=== PATIENT | female | born 1960 | race Caucasian/White ===

== ENCOUNTER 2020-12-04 13:01 | Emergency (ER) | payer MEDICARE, MEDICAID, SELFPAY ==
[2020-12-04 13:26] VITALS: BP 148/82; PULSE 96; RESP 18; TEMP 37.2; O2SAT 100
--- NOTE | 2020-12-04 14:20 | ED.SKABFB ---
HPI - Skin/Abscess/Foreign Bdy General Chief complaint: Skin/Abscess/Foreign Body Stated complaint: sunburn ear pain and trouble breathing Time Seen by Provider: 12/04/20 14:20 Source: patient Mode of arrival: ambulatory Limitations: no limitations History of Present Illness HPI narrative: Marilin Null is a 60-year-old female with COPD and hypertension, comes here with a 7-day-old sunburn with peeling and blistering and decreased volume of respiration. She has COPD and while she talks well and does not seem short of breath when she inhales deeply there is she has a lot of wheezing that is audible-has left ear pain Related Data Home Medications Medication Instructions Recorded Confirmed albuterol sulfate [Ventolin HFA] 2 puff INHALATION QID PRN 03/30/19 12/04/20 amlodipine 10 mg PO DAILY 03/30/19 12/04/20 atorvastatin 20 mg PO DAILY 03/30/19 12/04/20 budesonide-formoterol [Symbicort] 2 puff INHALATION Q12H 03/30/19 12/04/20 clonidine HCl 0.2 mg PO DAILY 03/30/19 12/04/20 hydrochlorothiazide 25 mg PO DAILY 03/30/19 12/04/20 losartan 100 mg PO DAILY 03/30/19 12/04/20 meloxicam 15 mg PO DAILY 03/30/19 12/04/20 montelukast 10 mg PO DAILY 03/30/19 12/04/20 tiotropium bromide [Spiriva 2 puff INHALATION DAILY 03/30/19 12/04/20 Respimat] Allergies Allergy/AdvReac Type Severity Reaction Status Date / Time erythromycin base Allergy Rash Verified 12/04/20 13:37 lisinopril Allergy Cough Verified 12/04/20 13:37 Beta-Blockers AdvReac Difficulty Verified 12/04/20 13:37 (Beta-Adrenergic Bloc Breathing Review of Systems Review of Systems: CONSTITUTIONAL: Denies fever, chills, sweats. EYES: Denies visual changes, redness, discharge. ENT: Denies rhinorrhea, congestion, sore throat, left otalgia. CARDIOVASCULAR: Denies chest pain, palpitations, edema. RESPIRATORY: Denies dyspnea, has wheezing, cough GASTROINTESTINAL: Denies abdominal pain, nausea, vomiting, diarrhea. GENITOURINARY: Denies dysuria, hematuria, abnormal discharge SKIN: Has sunburn on chest arms legs that is red and it area is blistered NEUROLOGIC: Denies numbness, or focal weakness. PSYCHIATRIC: Denies anxiety or depression. [facility] Past Medical History Medical History (Updated 12/04/20 @ 14:36 by Monique Carvalho CNP) COPD (chronic obstructive pulmonary disease) Hypertension Morbid obesity Family History Family History Other Hypertension Social History Social History (Updated 12/04/20 @ 14:31 by Monique Carvalho CNP) Smoking status: Former smoker Smoking end date: 04/19/10 Alcohol intake: current Comments At time of signature, I agree with nursing past medical, surgical, social and family history. There is no relevant family history pertinent to the presenting complaint. Exam Narrative: GENERAL: This is a well-nourished, well-developed patient, in mild distress. Has mild to severe HEAD: normocephalic, atraumatic. EYES: . Sclera clear/white. Vision is grossly intact. EARS: External ears normal, auditory canals clear on right but is erythematous on the left without drainage, TMs normal without perforation. Hearing grossly intact. NOSE: External nose normal without nasal discharge, nares without redness, no rhinorrhea. THROAT: Mucous membranes moist, NECK: Neck supple, non-tender CARDIOVASCULAR: Regular rate and rhythm without murmurs, gallops, or rubs. RESPIRATORY: Diminished to auscultation. Breath sounds equal bilaterally with wheezes, no rales, or rhonchi. GASTROINTESTINAL: Abdomen soft, non-tender, SKIN: warm, has areas of blistering on broad sunburn across arms shoulders chest and legs NEURO: awake, alert, and oriented to person, place and time. There were no obvious focal neurologic abnormalities. Steady gait EXTREMITIES: Normal range of motion. BACK: Nontender without deformity Course Course Emergency Course: Patient comes for complaints of sunburn, left ear pain, mild
== END 2020-12-04 14:42 | disposition home or self-care (01) ==
PROVIDERS: Emergency Provider Nurse Practitioner; PCP Internal Medicine Infectious Disease
DX: L55.0 Sunburn of first degree (principal); H92.02 Otalgia, left ear; R06.02 Shortness of breath; Z87.891 Personal history of nicotine dependence; J44.9 Chronic obstructive pulmonary disease, unspecified; I10 Essential (primary) hypertension; E66.01 Morbid (severe) obesity due to excess calories; Z68.43 Body mass index [BMI] 50.0-59.9, adult
CPT/HCPCS: 99213; G0463

== ENCOUNTER 2021-02-26 10:53 | Emergency (ER) | payer OTHER, SELFPAY ==
[2021-02-26 11:26] VITALS: BP 153/70; PULSE 89; RESP 18; TEMP 36.9; O2SAT 96
--- NOTE | 2021-02-26 11:50 | ED.URI ---
HPI - URI/Sore Throat General Chief Complaint: Upper Respiratory Infection Stated Complaint: ears and coughing History of Present Illness HPI Narrative: This a 60-year-old female comes in complaining of some shortness of breath she is able to talk complete sentences without shortness of breath. Patient states that she has had increased coughing as well as runny nose. Patient states that she has COPD and she is high risk for bronchitis Related Data Home Medications Medication Instructions Recorded Confirmed albuterol sulfate [Ventolin HFA] 2 puff INHALATION QID PRN 03/30/19 02/26/21 amlodipine 10 mg PO DAILY 03/30/19 02/26/21 atorvastatin 20 mg PO DAILY 03/30/19 02/26/21 budesonide-formoterol [Symbicort] 2 puff INHALATION Q12H 03/30/19 02/26/21 clonidine HCl 0.2 mg PO DAILY 03/30/19 02/26/21 hydrochlorothiazide 25 mg PO DAILY 03/30/19 02/26/21 losartan 100 mg PO DAILY 03/30/19 02/26/21 meloxicam 15 mg PO DAILY 03/30/19 02/26/21 montelukast 10 mg PO DAILY 03/30/19 02/26/21 tiotropium bromide [Spiriva 2 puff INHALATION DAILY 03/30/19 02/26/21 Respimat] Allergies Allergy/AdvReac Type Severity Reaction Status Date / Time erythromycin base Allergy Rash Verified 12/04/20 13:37 lisinopril Allergy Cough Verified 12/04/20 13:37 Beta-Blockers AdvReac Difficulty Verified 12/04/20 13:37 (Beta-Adrenergic Bloc Breathing Review of Systems Review of Systems: Ear pain, wheezing years ago, ear drainage All systems reviewed & are unremarkable except as noted in HPI and below PMFSH Past Medical History Medical History (Updated 02/26/21 @ 11:53 by French Estrella NP) COPD (chronic obstructive pulmonary disease) Hypertension Morbid obesity Family History Family History Other Hypertension Social History Social History (Updated 12/04/20 @ 14:31 by Monique Carvalho CNP) Smoking status: Former smoker Smoking end date: 04/19/10 Alcohol intake: current Comments At time as signature, I have reviewed and agree with nursing past medical, social, surgical and family history. Please see nursing chart for further information. There is no relevant family history pertinent to the presenting complaint. Exam Narrative: GENERAL:Well-appearing, well-nourished, and in no acute distress. HEAD:Normocephalic, . EYES: PERRLA ENT: Nares clear, no rhinorrhea or epistaxis. Mucous membranes moist. Negative for any drainage or CHEST: Clear to auscultation. No respiratory distress. HEART: Regular rate and rhythm. ABDOMEN: Soft, nontender, nondistended, normal active bowel sounds. EXTREMITIES: Normal range of motion. No edema. SKIN: Warm, dry, no rash. NEURO: No focal deficits. Alert and oriented x3. Exam is essentially negative we will treat patient for her symptoms Course Vital Signs Vital signs: Vital Signs Temperature 98.5 F 02/26/21 11:26 Pulse Rate 89 02/26/21 11:26 Respiratory Rate 18 02/26/21 11:26 Blood Pressure 153/70 H 02/26/21 11:26 Pulse Oximetry 96 02/26/21 11:26 Temperature 98.5 F 02/26/21 11:26 Pulse Rate 89 02/26/21 11:26 Respiratory Rate 18 02/26/21 11:26 Blood Pressure 153/70 H 02/26/21 11:26 Pulse Oximetry 96 02/26/21 11:26 MDM - URI/Sore Throat Differential Diagnosis Differential diagnosis: Likely upper respiratory infection, croup, otitis media, sinusitis, viral infection, bronchitis, influenza and pharyngitis Discharge Plan Discharge Clinical Impression: Upper respiratory infection Qualifiers: URI type: unspecified URI Qualified Code(s): J06.9 - Acute upper respiratory infection, unspecified Hypertension Qualifiers: Hypertension type: unspecified Qualified Code(s): I10 - Essential (primary) hypertension Patient Disposition: Home, Self-Care Condition: Stable Instructions: Antibiotic Form Additional Instructions: Viral illness may last between 7-12days; antibiotic is NOT recommende
== END 2021-02-26 12:03 | disposition home or self-care (01) ==
PROVIDERS: Emergency Provider Nurse Practitioner Family; PCP Internal Medicine Infectious Disease
DX: J06.9 Acute upper respiratory infection, unspecified (principal); I10 Essential (primary) hypertension; J44.9 Chronic obstructive pulmonary disease, unspecified; E66.01 Morbid (severe) obesity due to excess calories; Z68.42 Body mass index [BMI] 45.0-49.9, adult
CPT/HCPCS: 99213; G0463

== ENCOUNTER 2021-04-02 09:17 | Emergency (ER) | payer OTHER, SELFPAY ==
[2021-04-02 09:23] VITALS: BP 225/95; PULSE 96; RESP 16; TEMP 37.2; O2SAT 98
--- NOTE | 2021-04-02 09:23 | ED.URI ---
HPI - URI/Sore Throat General Chief Complaint: Upper Respiratory Infection Stated Complaint: Cold Time Seen by Provider: 04/02/21 09:55 Source: patient and RN notes reviewed Mode of arrival: ambulatory Limitations: no limitations History of Present Illness HPI Narrative: 60-year-old female presents with concern for wheezing, shortness of breath, productive cough. She reports she has COPD, she has been using her daily inhalers and her rescue inhaler without much relief. Reports symptoms started 7 days ago. She reports some mild nasal congestion and rhinorrhea. She denies fever, body aches, chills, sweats. She has been vaccinated for Covid. She denies any known exposure. MD elicited complaint: cough and sore throat Related Data Home Medications Medication Instructions Recorded Confirmed albuterol sulfate [Ventolin HFA] 2 puff INHALATION QID PRN 03/30/19 02/26/21 amlodipine 10 mg PO DAILY 03/30/19 02/26/21 atorvastatin 20 mg PO DAILY 03/30/19 02/26/21 budesonide-formoterol [Symbicort] 2 puff INHALATION Q12H 03/30/19 02/26/21 clonidine HCl 0.2 mg PO DAILY 03/30/19 02/26/21 hydrochlorothiazide 25 mg PO DAILY 03/30/19 02/26/21 losartan 100 mg PO DAILY 03/30/19 02/26/21 meloxicam 15 mg PO DAILY 03/30/19 02/26/21 montelukast 10 mg PO DAILY 03/30/19 02/26/21 tiotropium bromide [Spiriva 2 puff INHALATION DAILY 03/30/19 02/26/21 Respimat] Allergies Allergy/AdvReac Type Severity Reaction Status Date / Time erythromycin base Allergy Rash Verified 04/02/21 09:48 lisinopril Allergy Cough Verified 04/02/21 09:48 Beta-Blockers AdvReac Difficulty Verified 04/02/21 09:48 (Beta-Adrenergic Bloc Breathing Review of Systems Review of Systems: CONSTITUTIONAL: Denies malaise, chills, sweats, or fever. EYES: Denies visual changes, redness, or discharge. ENT: Reports rhinorrhea, congestion. Denies sinus pain, otalgia and sore throat. CARDIOVASCULAR: Denies chest pain, palpitations, or edema. RESPIRATORY: Reports cough. Reports wheezing and occasional dyspnea. GASTROINTESTINAL: Denies abdominal pain, nausea, vomiting, diarrhea SKIN: Denies rash or itching. MUSCULOSKELETAL: Denies myalgia. NEUROLOGIC: Denies headache. All systems reviewed & are unremarkable except as noted in HPI and below PMFSH Past Medical History Medical History (Updated 04/02/21 @ 10:06 by Ariane Neri NP) COPD (chronic obstructive pulmonary disease) Hypertension Morbid obesity Family History Family History Other Hypertension Social History Social History (Updated 12/04/20 @ 14:31 by Monique Carvalho CNP) Smoking status: Former smoker Smoking end date: 04/19/10 Alcohol intake: current Comments At time of signature, agree with nursing past medical, surgical, social and family history. There is no relevant family history pertinent to the presenting complaint Exam Narrative: GENERAL: Well-appearing, well-nourished, and in no acute distress. HEAD: Normocephalic EYES: PERRLA, conjunctivae clear ENT: Nares clear. Mucous membranes moist. TM pearly rosales with dull light reflex bilaterally; no tragal tenderness. Oropharynx not erythematous without lesions. Tonsils not enlarged and without exudate, no drooling, no hoarseness, no trismus, uvula midline. NECK: Supple. No lymphadenopathy CHEST: Scattered expiratory wheeze, otherwise, breath sounds equal. No rhonchi, rales, or stridor. No respiratory distress, speaks in full sentences. HEART: Regular rate and rhythm. No murmur heard. SKIN: Warm, dry, no rash. NEURO: Alert and oriented x3. PSYCH: Normal mood and affect Course Course Emergency Course: Patient is aware of diagnosis, understands and agrees to treatment plan. Anticipatory guidance given. Patient agrees to follow-up as directed and is aware of reasons to seek care at the emergency department. Portions of this record may have been created with voice recognition software Vital Signs
[2021-04-02 10:00] VITALS: BP 168/90
== END 2021-04-02 10:15 | disposition home or self-care (01) ==
PROVIDERS: Emergency Provider Nurse Practitioner; PCP Internal Medicine Infectious Disease
DX: J44.1 Chronic obstructive pulmonary disease with (acute) exacerbation (principal); I10 Essential (primary) hypertension; Z87.891 Personal history of nicotine dependence; Z20.822 Contact with and (suspected) exposure to COVID-19
CPT/HCPCS: 87426; 99213; C9803; G0463

== ENCOUNTER 2021-04-10 08:07 | Emergency (ER) | payer OTHER, SELFPAY ==
[2021-04-10 08:13] VITALS: BP 196/78; PULSE 101; RESP 20; TEMP 36.6; O2SAT 99
== END 2021-04-10 08:44 | disposition left against medical advice (07) ==
LOC: EXPBETH 08:11
PROVIDERS: Emergency Provider Nurse Practitioner Family; PCP Internal Medicine Infectious Disease
DX: Z53.21 Procedure and treatment not carried out due to patient leaving prior to being seen by health care provider (principal)
CPT/HCPCS: 99199

== ENCOUNTER 2021-04-27 08:18 | Emergency (ER) | payer OTHER, SELFPAY ==
[2021-04-27 08:25] VITALS: BP 162/90; PULSE 118; RESP 16; TEMP 37.3; O2SAT 95
--- NOTE | 2021-04-27 09:12 | ED.URI ---
HPI - URI/Sore Throat General Chief Complaint: Upper Respiratory Infection Stated Complaint: cough,body hurts,cold Time Seen by Provider: 04/27/21 08:58 Source: patient and RN notes reviewed Mode of arrival: ambulatory Limitations: no limitations History of Present Illness HPI Narrative: Patient presents today with a 2-day history of cough, congestion, headaches and body aches, chills, right ear pain. Symptoms have worsened since yesterday. History of asthma, COPD. She has been taking Robitussin with codeine with some relief. MD elicited complaint: cough and nasal congestion Related Data Home Medications Medication Instructions Recorded Confirmed albuterol sulfate [Ventolin HFA] 2 puff INHALATION QID PRN 03/30/19 04/27/21 amlodipine 10 mg PO DAILY 03/30/19 04/27/21 atorvastatin 20 mg PO DAILY 03/30/19 04/27/21 budesonide-formoterol [Symbicort] 2 puff INHALATION Q12H 03/30/19 04/27/21 clonidine HCl 0.2 mg PO DAILY 03/30/19 04/27/21 hydrochlorothiazide 25 mg PO DAILY 03/30/19 04/27/21 losartan 100 mg PO DAILY 03/30/19 04/27/21 meloxicam 15 mg PO DAILY 03/30/19 04/27/21 montelukast 10 mg PO DAILY 03/30/19 04/27/21 tiotropium bromide [Spiriva 2 puff INHALATION DAILY 03/30/19 04/27/21 Respimat] fluticasone propionate 50 mcg INTRANASAL DAILY 04/10/21 04/27/21 aspirin [Aspirin Low Dose] 81 mg PO DAILY 04/27/21 04/27/21 cyanocobalamin (vitamin B-12) 1,000 mcg PO DAILY 04/27/21 04/27/21 [Vitamin B-12] [id number] K 1 tablet PO DAILY 04/27/21 04/27/21 [Adults Multivitamin] vitamin A 2,400 mcg PO DAILY 04/27/21 04/27/21 Allergies Allergy/AdvReac Type Severity Reaction Status Date / Time erythromycin base Allergy Rash Verified 04/27/21 08:48 lisinopril Allergy Cough Verified 04/27/21 08:48 Beta-Blockers AdvReac Difficulty Verified 04/27/21 08:48 (Beta-Adrenergic Bloc Breathing Review of Systems Review of Systems: CONSTITUTIONAL: Denies fever, or sweats.+ Body aches, chills EYES: Denies visual changes, redness, or discharge. ENT: Denies rhinorrhea, sore throat.+ Congestion, right ear pain CARDIOVASCULAR: Denies chest pain, palpitations, or edema. RESPIRATORY: Denies dyspnea.+ Cough GASTROINTESTINAL: Denies abdominal pain, nausea, vomiting, or diarrhea. GENITOURINARY: Denies dysuria or hematuria. SKIN: Denies rash, itching, or wounds. MUSCULOSKELETAL: Denies back pain, joint pain, or myalgia. NEUROLOGIC: Denies numbness, tingling, or weakness.+ Headache PSYCH: Denies depression or anxiety. [facility] Past Medical History Medical History COPD (chronic obstructive pulmonary disease) Hypertension Morbid obesity Family History Family History Other Hypertension Social History Social History Smoking status: Former smoker Smoking end date: 04/19/10 Alcohol intake: current Comments At time of signature, I have reviewed and agree with nursing past medical, surgical, social and family history unless otherwise noted. Please see nursing chart for further information. There is no relevant family history pertinent to the presenting complaint Exam Narrative: GENERAL: Mildly ill-appearing, well-nourished, and in no acute distress. HEAD: Normocephalic, atraumatic. EYES: EOMI. No redness or drainage. Conjunctivae normal. ENT: Mucous membranes pink and moist. Nares clear. No rhinorrhea. TMs normal bilaterally. Throat normal. Uvula midline. NECK: Normal AROM. Supple. No lymphadenopathy. CHEST: No respiratory distress. Clear to auscultation. HEART: Regular rate and rhythm. No murmur appreciated. Normal peripheral pulses. EXTREMITIES: Normal range of motion. No edema. SKIN: Warm, dry, no rash. Capillary refill normal. Normal skin turgor. NEURO: No focal deficits. Alert and oriented x3. Gait steady. PSYCH: Narcisa
== END 2021-04-27 09:25 | disposition home or self-care (01) ==
PROVIDERS: Emergency Provider Nurse Practitioner; PCP Internal Medicine Infectious Disease
DX: U07.1 COVID-19 (principal); Z87.891 Personal history of nicotine dependence; J44.9 Chronic obstructive pulmonary disease, unspecified; I10 Essential (primary) hypertension; E66.01 Morbid (severe) obesity due to excess calories; Z68.42 Body mass index [BMI] 45.0-49.9, adult; Z79.82 Long term (current) use of aspirin
CPT/HCPCS: 87426; 99213; C9803; G0463

== ENCOUNTER 2021-10-01 08:16 | Emergency (ER) | payer MEDICARE, MEDICAID, SELFPAY ==
--- NOTE | ~2021-10-01 | XR_ITS ---
XR chest 2V DATE: 10/01/2021 09:11 INDICATION: Cough, congestion for 4 days TECHNIQUE: 2 views COMPARISON: None FINDINGS: Normal heart size. No hilar or mediastinal enlargement. No pulmonary infiltrate or consolid ation, pleural effusion or pulmonary vascular congestion or pneumothorax. Diffuse idiopathic skeletal hyperostosis of the lower thoracic spine. IMPRESSION: No active cardiopulmonary disease Reviewed, dictated and finalized at location A.
[2021-10-01 08:22] VITALS: BP 159/88; PULSE 89; RESP 20; TEMP 36.8; O2SAT 96
--- NOTE | 2021-10-01 08:48 | ED.URI ---
HPI - URI/Sore Throat General Chief Complaint: Upper Respiratory Infection Stated Complaint: chest congestion fatigue Time Seen by Provider: 10/01/21 08:48 Source: patient, RN notes reviewed and old records reviewed Mode of arrival: ambulatory Limitations: no limitations History of Present Illness HPI Narrative: 60 year old female presents to [facility] care with complaints of chest congestion, fatigue,increased cough with some shortness of breath for the past 5 days. Patient reports that she was in [place] and initially she thought it was related to allergies, she takes daily singular Zyrtec and Flonase. She reports that she is coughing up some yellowish greenish brown phlegm, and feels more short of breath with wheezing stated at times. She states that her cough is worse at night and she has taken some cough syrup with codeine to help her rest. Patient does have history of COPD and asthma and is on daily inhaler regime and has also been using her rescue inhaler more frequently. MD elicited complaint: cough, rhinorrhea, nasal congestion and other (shortness of breath) Pertinent past history: COPD and asthma Onset (ago): day(s) (5) Treatments prior to arrival: other (inhalers, flonase singulair and Zyrtec) Related Data Home Medications Medication Instructions Recorded Confirmed albuterol sulfate 90 mcg/actuation 2 puff inhalation QID PRN 03/30/19 10/01/21 aerosol inhaler (Ventolin HFA) Shortness Of Breath Or Wheezing amlodipine 10 mg tablet 10 mg PO DAILY 03/30/19 10/01/21 atorvastatin 20 mg tablet 20 mg PO DAILY 03/30/19 10/01/21 budesonide-formoterol HFA 160 2 puff inhalation Q12H 03/30/19 10/01/21 mcg-4.5 mcg/actuation aerosol inhaler (Symbicort) clonidine HCl 0.2 mg tablet 0.2 mg PO DAILY 03/30/19 10/01/21 hydrochlorothiazide 25 mg tablet 25 mg PO DAILY 03/30/19 10/01/21 losartan 100 mg tablet 100 mg PO DAILY 03/30/19 10/01/21 meloxicam 15 mg tablet 15 mg PO DAILY 03/30/19 10/01/21 montelukast 10 mg tablet 10 mg PO DAILY 03/30/19 10/01/21 tiotropium bromide 2.5 2 puff inhalation DAILY 03/30/19 10/01/21 mcg/actuation mist for inhalation (Spiriva Respimat) fluticasone propionate 50 50 mcg intranasal DAILY 04/10/21 10/01/21 mcg/actuation nasal spray,suspension aspirin 81 mg tablet,delayed 81 mg PO DAILY 04/27/21 10/01/21 release (Any Low Dose Aspirin) cyanocobalamin (vitamin B-12) 1,000 mcg PO DAILY 04/27/21 10/01/21 1,000 mcg tablet (Vitamin B-12) multivit with minerals-iron 18 1 tablet PO DAILY 04/27/21 10/01/21 mg-folic ac 400 mcg-vit K 25 mcg tablet (Adults Multivitamin) vitamin A 2,400 mcg capsule 2,400 mcg PO DAILY 04/27/21 10/01/21 Allergies Allergy/AdvReac Type Severity Reaction Status Date / Time erythromycin base Allergy Rash Verified 10/01/21 08:54 lisinopril Allergy Cough Verified 10/01/21 08:54 Beta-Blockers AdvReac Difficulty Verified 10/01/21 08:54 (Beta-Adrenergic Bloc Breathing Review of Systems Review of Systems: CONSTITUTIONAL: Denies fever, chills, or sweats EYES: Denies visual changes, redness, or discharge. ENT: Positive for rhinorrhea, congestion,no sore throat, or otalgia. CARDIOVASCULAR: Denies chest pain, palpitations, or edema, tightness to chest with cough RESPIRATORY: Positive for cough or dyspnea. GASTROINTESTINAL: Denies abdominal pain, nausea, vomiting, or diarrhea GENITOURINARY: Denies dysuria or hematuria. SKIN: Denies rash or itching. MUSCULOSKELETAL: Denies back pain, joint pain, or myalgia. NEUROLOGIC: Denies headache, numbness, or weakness. PSYCHIATRIC: Denies anxiety or depression. [facility] Past Medical History Medical History (Updated 10/02/21 @ 00:00 by Concha Colin) Asthma COPD (chronic obstructive pulmonary disease) Elevated cholesterol Hypertension Lump of breast, right removed age 16 Morbid obesity Surgical History Surgical History (Updated 10/01/21 @ 09:17 by Suzy Barrow NP) H/O tubal ligation History of total bilateral
== END 2021-10-01 09:30 | disposition home or self-care (01) ==
PROVIDERS: Emergency Provider Registered Nurse; PCP Internal Medicine Infectious Disease
DX: J44.1 Chronic obstructive pulmonary disease with (acute) exacerbation (principal); E78.00 Pure hypercholesterolemia, unspecified; E66.01 Morbid (severe) obesity due to excess calories; Z68.42 Body mass index [BMI] 45.0-49.9, adult; Z87.891 Personal history of nicotine dependence
CPT/HCPCS: 71046; 99213; G0463

== ENCOUNTER 2021-10-24 09:45 | Emergency (ER) | payer MEDICARE, MEDICAID, SELFPAY ==
[2021-10-24 09:50] VITALS: BP 165/69; PULSE 103; RESP 18; TEMP 36.5; O2SAT 95
--- NOTE | 2021-10-24 10:01 | ED.GENADULT ---
HPI - General Adult General Chief complaint: Skin/Abscess/Foreign Body Stated complaint: right side of face swollen Time Seen by Provider: 10/24/21 10:02 Source: patient Mode of arrival: ambulatory Limitations: no limitations History of Present Illness HPI narrative: 61-year-old female presents with concern for swelling to the right side of her face. Reports its painful to touch. She reports she feels a knot in the area. She reports she had a similar instance approximately 8 months ago which went away after taking antibiotics. She reports she is having dental problems on her top front teeth and is going to talk to her dentist about having them removed. She denies fever, general malaise. MD complaint: Facial swelling Related Data Home Medications Medication Instructions Recorded Confirmed albuterol sulfate 90 mcg/actuation 2 puff inhalation QID PRN 03/30/19 10/24/21 aerosol inhaler (Ventolin HFA) Shortness Of Breath Or Wheezing amlodipine 10 mg tablet 10 mg PO DAILY 03/30/19 10/24/21 atorvastatin 20 mg tablet 20 mg PO DAILY 03/30/19 10/24/21 budesonide-formoterol HFA 160 2 puff inhalation Q12H 03/30/19 10/24/21 mcg-4.5 mcg/actuation aerosol inhaler (Symbicort) clonidine HCl 0.2 mg tablet 0.2 mg PO DAILY 03/30/19 10/24/21 hydrochlorothiazide 25 mg tablet 25 mg PO DAILY 03/30/19 10/24/21 losartan 100 mg tablet 100 mg PO DAILY 03/30/19 10/24/21 meloxicam 15 mg tablet 15 mg PO DAILY 03/30/19 10/24/21 montelukast 10 mg tablet 10 mg PO DAILY 03/30/19 10/24/21 tiotropium bromide 2.5 2 puff inhalation DAILY 03/30/19 10/24/21 mcg/actuation mist for inhalation (Spiriva Respimat) fluticasone propionate 50 50 mcg intranasal DAILY 04/10/21 10/24/21 mcg/actuation nasal spray,suspension aspirin 81 mg tablet,delayed 81 mg PO DAILY 04/27/21 10/24/21 release (Any Low Dose Aspirin) cyanocobalamin (vitamin B-12) 1,000 mcg PO DAILY 04/27/21 10/24/21 1,000 mcg tablet (Vitamin B-12) multivit with minerals-iron 18 1 tablet PO DAILY 04/27/21 10/24/21 mg-folic ac 400 mcg-vit K 25 mcg tablet (Adults Multivitamin) vitamin A 2,400 mcg capsule 2,400 mcg PO DAILY 04/27/21 10/24/21 cyclobenzaprine 10 mg tablet 10 mg PO DAILY 10/24/21 10/24/21 duloxetine 30 mg capsule,delayed 30 mg PO DAILY 10/24/21 10/24/21 release Allergies Allergy/AdvReac Type Severity Reaction Status Date / Time erythromycin base Allergy Rash Verified 10/24/21 09:58 lisinopril Allergy Cough Verified 10/24/21 09:58 Beta-Blockers AdvReac Difficulty Verified 10/24/21 09:58 (Beta-Adrenergic Bloc Breathing Review of Systems Review of Systems: CONSTITUTIONAL: Denies malaise, chills, sweats, or fever. ENT: Denies rhinorrhea, congestion, sinus pain, otalgia or sore throat. Reports right-sided facial swelling, feels a knot CARDIOVASCULAR: Denies chest pain, palpitations, or edema. RESPIRATORY: Denies cough or dyspnea. SKIN: Denies rash or itching. MUSCULOSKELETAL: Denies myalgia. All systems reviewed & are unremarkable except as noted in HPI and below PMFSH Past Medical History Medical History (Updated 10/24/21 @ 10:15 by Ariane Neri NP) Asthma COPD (chronic obstructive pulmonary disease) Elevated cholesterol Hypertension Lump of breast, right removed age 16 Morbid obesity Surgical History Surgical History (Updated 10/01/21 @ 09:17 by Suzy Barrow NP) H/O tubal ligation History of total bilateral knee replacement Previous section Family History Family History Other Hypertension Social History Social History (Updated 10/01/21 @ 09:11 by Suzy Barrow NP) Smoking status: Former smoker Smoking end date: 04/19/10 Alcohol intake: current Substance use type: does not use Gender identity (if verbalized by the patient): Female Comments At time of signature, agree with nursing past medical, surgical, social and family history. There is
== END 2021-10-24 10:30 | disposition home or self-care (01) ==
PROVIDERS: Emergency Provider Nurse Practitioner; PCP Internal Medicine Infectious Disease
DX: K04.7 Periapical abscess without sinus (principal); Z87.891 Personal history of nicotine dependence; J44.9 Chronic obstructive pulmonary disease, unspecified; E78.00 Pure hypercholesterolemia, unspecified; I10 Essential (primary) hypertension; E66.01 Morbid (severe) obesity due to excess calories; Z68.42 Body mass index [BMI] 45.0-49.9, adult; Z96.653 Presence of artificial knee joint, bilateral
CPT/HCPCS: 41800; 99213; A9270; G0463